=== PATIENT | male | born 1960 | race Caucasian/White ===

== ENCOUNTER → 2017-09-19 | Outpatient (CLI) | payer BC, OTHER ==
[~2017-09-19] MED LIST: COUMADIN 5 MG TA5 M1; LISINOPRIL10 MG PO; TOPROL XL25 MG; VENTOLIN17 GM INH
== END ==
LOC: CAT 08:55
DX: K57.32 Diverticulitis of large intestine without perforation or abscess without bleeding (principal); M47.896 Other spondylosis, lumbar region

== ENCOUNTER → 2017-11-09 | Outpatient (CLI) | payer BC, OTHER | LOC: CAT 07:55 | DX: K57.30 Diverticulosis of large intestine without perforation or abscess without bleeding (principal) ==

== ENCOUNTER → 2020-12-25 | Outpatient (CLI) | payer BC | LOC: LAB 12:22 | PROVIDERS: ATTEND Anesthesiology | DX: Z01.812 Encounter for preprocedural laboratory examination (principal); Z20.822 Contact with and (suspected) exposure to COVID-19 ==